=== PATIENT | female | born 1945 | race Caucasian/White ===

== ENCOUNTER → 2016-11-17 06:18 | Emergency (ER) | payer MEDICARE ==
[~2016-11-17 06:18] MED LIST: Ibuprofen TAB* 600 MG PO ONE
--- NOTE | 2016-11-17 08:14 | RAD ---
INDICATION: Left wrist pain. TECHNIQUE: 3 views of the left wrist were obtained. FINDINGS: The bones are normal alignment. No fracture is seen. There is mild osteoarthritic change in the first carpal metacarpal joint. IMPRESSION: MILD OSTEOARTHRITIC CHANGE.
[2016-11-17 09:56] VITALS: BP 148/78
--- NOTE | 2016-11-17 17:20 | ED ---
Sumaya Chu Alfonso, scribed for Nyasia Allen MD on 11/17/16 at 0718 . Upper Extremity Pain - HPI Summary HPI Summary: This patient is a 70 year old F presenting to [facility] with a chief complaint of left hand numbness since 2 weeks ago. Patient reports all fingers in the left hand are numb. She states her left index finger has no sensation secondary to an accident more than 50 years ago. She states think of a rubber band and [ the fingers] go snap and they get so numb that they throb. Patient states she thinks the symptoms are carpal tunnel but she has not had this evaluated or diagnosed by a physician. The patient rates the pain 9/10 in severity. The pain is constant and worse at night. Symptoms aggravated by movement. Patient reports FROM in left hand and pale left fingers. Patient denies motor function loss and LUE pain outside of the left hand. She was wearing a hand splint, and tried exercises for carpal tunnel found online. She is not working outside of the home. She reports an appointment with Dr. Cabrera (orthopedics) for 11/23/16 that she made on her own, without a referral. This was the soonest appointment she could get. She denies PMHx of CAD, DM, and thyroid disease. Patient reports taking 40 mg pravastatin and Losartan Potassium / Hydrochlorothiazide 50 mg/ 12.5 mg. She began a course of Amoxicillin two days ago. PSHx includes tubal ligation, cataracts, right meniscus surgery, and left plantar fascia. PMHx includes HTN and HLD. - History of Current Complaint Chief Complaint: EDExtremityUpper Stated Complaint: LEFT HAND PAIN Hx Obtained From: Patient Mechanism Of Injury: Other - no known injury Onset/Duration: Started Weeks Ago - 2, Still Present Timing: Constant Severity Initially: Moderate Severity Currently: Moderate Pain Location: Hand - left Character: Throbbing - and numb Aggravating Factor(s): Movement Alleviating Factor(s): Nothing Associated Signs & Symptoms: Positive: Numbness/Tingling, Other - FROM in left hand and pale left fingers. Patient denies motor function loss and LUE pain outside of the left hand Related History: Dominant Hand Right - Risk Factors Non-Orthopedic Risk Factor: Negative DVT Risk Factors: Negative - Allergies/Home Medications Allergies/Adverse Reactions: Allergies Allergy/AdvReac Type Severity Reaction Status Date / Time Sulfa Antibiotics Allergy KIDNEY Verified 11/17/16 06:50 DAMAGE BEES Allergy Edema Uncoded 11/17/16 06:50 PMH/Surg Hx/FS Hx/Imm Hx Previously Healthy: No Endocrine/Hematology History: Denies: Hx Diabetes, Hx Thyroid Disease Cardiovascular History: Reports: Hx Hypercholesterolemia, Hx Hypertension - ON MEDS Denies: Hx Coronary Artery Disease, Other Cardiovascular Problems/Disorders Respiratory History: Denies: Other Respiratory Problems/Disorders GI History: Denies: Other GI Disorders Musculoskeletal History: 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 1998, LEFT FOOT PLANTAR FASCIITIS. includes tubal ligation, cataracts, meniscus surgery, and plantar fascia Hx Anesthesia Reactions: No Infectious Disease History: No Infectious Disease History: Denies: Traveled Outside the [place] in Last 30 Days - Family History Known Family History: Positive: Cardiac Disease, Other - Negative cancer - Social History Alcohol Use: None Substance Use Type: Reports: None Smoking Status (MU): Never Smoked Tobacco Have You Smoked in the Last Year: No Review of Systems Negative: Fever Cardiovascular: Negative Respiratory: Negative Gastrointestinal: Negative Positive: Other - left hand numbness, FROM in left hand; negative motor function loss and LUE pain outside of the left hand Positive: Other - pale left fingers Neurological: Negative Psychological: Normal All Other Systems Reviewed And Are Negative: Yes Physical Exam Triage Information Reviewed: Yes Vital Signs On Initial Exam: Initial Vitals Temp Pulse Resp BP Pulse Ox 97.1 F 88 20 146/71 97 11/17/16 06:21 11/17/16 06:21 11/17/16 06:21 11/17/16 06:21 11/17/16 06:21 Vital Signs Reviewed: Yes Appearance: Positive: Well-Appearing, Well-Nourished, Pain Distress Skin: Positive: Warm, Skin Color Reflects Adequate Perfusion Head/Face: Positive: Normal Head/Face Inspection Eyes: Positive: Conjunctiva Clear ENT: Positive: Normal ENT inspection Neck: Positive: Supple, Nontender, No Lymphadenopathy Respiratory/Lung Sounds: Positive: Clear to Auscultation, Breath Sounds Present , Other - No respiratory distress Cardiovascular: Positive: RRR, Pulses are Symmetrical in both Upper and Lower Extremities, Other - brisk capillary refill. Radial and ulnar pulses 2+ and strong in left hand.. Negative: Murmur Abdomen Description: Positive: Nontender, Soft Bowel Sounds: Positive: Present Musculoskeletal: Positive: Other - Tinel's positive. Phalens positive. Left hand laundry room attendant strength 4/5 compared to right hand 5/5. Motor function and sensation intact. Neurological: Positive: Sensory/Motor Intact, Alert, Oriented to Person Place, Time, CN Intact II-III, Facial Symmetry, Speech Normal Psychiatric: Positive: Normal Diagnostics - Vital Signs Vital Signs Temp Pulse Resp BP Pulse Ox 11/17/16 06:21 97.1 F 88 20 146/71 97 - Laboratory Lab Statement: Any lab studies that have been ordered have been reviewed, and results considered in the medical decision making process. - Radiology Left Wrist X-Ray Radiology Interpretation Completed By: Radiologist - MILD OSTEOARTHRITIC CHANGE. ED physician has reviewed this radiology report and agrees. Re-Evaluation - Re-Evaluation First Eval Re-Evaluation Time: 09:30 Change: Improved Comment: She reports the pain is much improved after ibuprofen. Course/Dx - Course Assessment/Plan: This patient is a 70 year old F presenting to [facility] with a chief complaint of left hand numbness since 2 weeks ago. Patient reports all fingers in the left hand are numb. She states her left index finger has no sensation secondary to an accident more than 50 years ago. She states think of a rubber band and [the fingers] go snap and they get so numb that they throb. Patient states she thinks the symptoms are carpal tunnel. The patient rates the pain 9/10 in severity. The pain is constant and worse at night. Symptoms aggravated by movement. Patient reports FROM in left hand and pale left fingers. Patient denies motor function loss and LUE pain outside of the left hand. She was wearing a hand splint, and tried exercises for carpal tunnel found online. She is not working outside of the home. She reports an appointment with Dr. Cabrera (orthopedics) for 11/23/16. She denies PMHx of CAD, DM, and thyroid disease. Patient reports taking 40 mg pravastatin and Losartan Potassium / Hydrochlorothiazide 50 mg/12.5 mg. She began a course of Amoxicillin two days ago. PSHx includes tubal ligation, cataracts, right meniscus surgery, and left plantar fascia. PMHx includes HTN and HLD.In the ED pt had ibuprofen 600mg po and a left wrist xray. Left wrist X-Ray reveals MILD OSTEOARTHRITIC CHANGE. ED physician has reviewed this radiology report and agrees. Pain improved with ibuprofen. Patient will be discharged with prescription for ibuprofen, cock up splint and definite follow up with Dr. Cabrera (orthopedics) and PCP. The patient is agreeable with this plan. - Diagnoses Differential Diagnosis/HQI/PQRI: Positive: Arthritis, Strain, Sprain, Other - carpal tunnel Provider Diagnoses: Carpal tunnel syndrome of left wrist, Paresthesia and pain of left extremity Discharge - Discharge Plan Condition: Stable Disposition: HOME Prescriptions: Ibuprofen TAB* [Motrin TAB* 600 MG] 600 mg PO Q8H PRN #20 tab PRN Reason: Pain Patient Education Materials: Osteoarthritis (ED), Paresthesia (ED) Referrals: Faiza Cabrera MD [Medical Doctor] - 4 Days (Monday11/21/16.) Maday Ricks MD [Primary Care Provider] - 1 Day The documentation as recorded by the Sumaya rodgers Alfonso accurately reflects the service I personally performed and the decisions made by , Nyasia Allen MD.
== END | disposition home or self-care (01) ==
LOC: ED 06:18
DX: G56.02 Carpal tunnel syndrome, left upper limb (principal); R20.8 Other disturbances of skin sensation
CPT/HCPCS: 99282; A9270-GY

== ENCOUNTER 2016-12-13 08:04 | Day surgery (SDC) | payer MEDICARE ==
--- NOTE | 2016-12-12 10:03 | HP ---
PREOPERATIVE HISTORY AND PHYSICAL: DATE OF SURGERY/ADMISSION: 12/13/16 DATE OF OFFICE VISIT/ENCOUNTER: 12/08/16 ATTENDING SURGEON: Faiza Cabrera MD * (DICTATED BY RACHNA BROWNE) PROCEDURE: Left carpal tunnel release. CHIEF COMPLAINT: Left hand numbness and tingling. HISTORY OF PRESENT ILLNESS: This is a 70-year-old female who reports numbness and tingling in her left hand for several months. The symptoms have become more intensive over the past couple of weeks. She said that recently she has been doing a lot of lifting, pushing, and pulling and trying to help clean out her mother's house. She has symptoms at night, which are quite severe and awaken her and also symptoms during the day. Symptoms are so significant it causes her to drop things. She recently had an EMG nerve conduction study that showed moderate carpal tunnel syndrome on the left. She has failed conservative treatment including wrist brace and [id number] medications. She is interested in pursuing surgical intervention at this time for this problem in the form of a left wrist carpal tunnel release. CURRENT MEDICATIONS: 1. Acetaminophen ER 650 mg one tab q.4 hours p.r.n. 2. Ibuprofen 600 mg one tab t.i.d. p.r.n. pain. 3. Losartan potassium hydrochlorothiazide one tab daily. 4. Multivitamin daily. 5. Pravastatin sodium 40 mg daily. ALLERGIES: SULFASALAZINE causes kidney issues. FAMILY MEDICAL HISTORY: Heart disease and cancer. SOCIAL HISTORY: The patient is retired, but she is very active with quilting and water aerobics. She denies tobacco use, recreational drug use, and alcohol use. REVIEW OF SYSTEMS: General: Negative for fevers, chills, or night sweats. No known anesthesia problems. HEENT: Negative for headache, lightheadedness or syncopal episodes. Integumentary: Negative for abrasions, lesions or open wounds. Cardiothoracic: Positive for hypertension. Negative for chest pain, palpitations or edema. Pulmonary: Negative for shortness of breath with exertion, chronic cough or COPD. GI: Negative for nausea, vomiting, diarrhea, constipation or GERD. : Negative for nocturia, urinary frequency, urgency, history of UTIs or kidney problems. Musculoskeletal: Positive for current complaint. Negative for chronic or intermittent back pain or history of fractures. Neurological: Negative for history of seizure, stroke, or epilepsy. Endocrine: Negative for diabetes or thyroid issues. Hematologic: Negative for easy bruising, anemia, excessive bleeding, or history of DVT. Infectious Disease: Negative for history of MRSA, hepatitis C or HIV. PHYSICAL EXAMINATION GENERAL: Well-developed, well-nourished 70-year-old female in no acute distress. VITAL SIGNS: Height 5 feet 8 inches, weight 220 pounds, blood pressure 136/78, and pulse rate 89. HEENT: Normocephalic, atraumatic. Pupils are equal, round, and reactive to light and accommodation. Extraocular movements are intact. Throat is clear. NECK: Supple. No palpable lymph nodes. PULMONARY: Lungs are clear to auscultation bilaterally. No wheezes, rales or rhonchi. CARDIOTHORACIC: Regular rate and rhythm. S1, S2. No murmurs, rubs or gallops. No edema. ABDOMEN: Positive bowel sounds. Soft, nontender. MUSCULOSKELETAL: On exam of her left upper extremity, she has mild thenar atrophy noted and weakness with some abduction on the left when compared to the right. She can make a closed fist and has good range of motion of her wrist. She has full motion at the elbow with no exacerbation of her symptoms. She has a negative Tinel's sign at the elbow, a positive Tinel's sign at the wrist over the median nerve and a positive Phalen test. She reports slight decreased sensation to light touch in her index finger through her pinky finger. She has full sensation in her thumb. NEUROLOGIC: Alert and oriented x3. Cranial nerves II through XII are intact. Sensation is intact to light touch. IMAGING STUDIES: EMG nerve conduction study shows moderate carpal tunnel syndrome on the left. IMPRESSION: Left carpal tunnel syndrome. PLAN: The patient is scheduled to undergo a left wrist carpel tunnel release with Dr. Cabrera on 12/13/16. She will return to the office in 10 to 14 days postop for followup and suture removal. A prescription for Ultracet was e- scribed to the patient's pharmacy for postoperative pain management. RACHNA BROWNE [id number]/[facility] #: [id number] MARTIN
[~2016-12-13 08:04] MED LIST changes: +Buffered Lidocaine 0.9% SYRIN* 5 ML/SYR SYRINGE INTRADERM ONE; +Dexamethasone IV* 4 MG/ML 1 ML (4 MG) IV SLOW PU ONE; +Famotidine IV* 10 MG/ML 2 ML (20 mg) IV ONE; -Ibuprofen TAB* 600 MG PO ONE; +Lidocaine 1% INJ* 10 MG/ML 30 ML SDV ONE
[2016-12-13] MEDS ORDERED: Famotidine IV* 10 MG/ML 2 ML (20 mg) ONE (08:22)
[2016-12-13] MEDS ORDERED: Dexamethasone IV* 4 MG/ML 1 ML (4 MG) ONE (08:22)
[2016-12-13] MEDS ORDERED: Midazolam* 1 MG/ML 2 ML VIAL (2 MG) ONE (08:55)
[2016-12-13] MEDS ORDERED: fentaNYL* 50 MCG/ML 2 ML VIAL (100 MCG VIAL) ONE (08:55)
[2016-12-13] MEDS ORDERED: Ondansetron INJ* 2 MG/ML VIAL IV PRN (09:03)
[2016-12-13] MEDS ORDERED: HYDROcodone/ACETAMIN 5-325 MG* 1 TAB PO PRN (09:03)
[2016-12-13] MEDS ORDERED: fentaNYL* 50 MCG/ML 2 ML VIAL (100 MCG VIAL) IV PRN (09:03)
[2016-12-13] MEDS ORDERED: Ketorolac INJ* 30 MG/ML 1 ML VIAL IV PRN (09:03)
[2016-12-13] MEDS ORDERED: oxyCODONE TAB* 5 MG TAB PO PRN (09:03)
[2016-12-13] MEDS ORDERED: Acetaminophen TAB* 325 MG PO PRN (09:03)
[2016-12-13] MEDS ORDERED: Propofol* 10 MG/ML 20 ML BTL IV PUSH ONE (09:12)
[2016-12-13] MEDS ORDERED: Lidocaine 2% PF * 5 ML VIAL ONE (09:12)
[2016-12-13 09:43] VITALS: BP 118/61
--- NOTE | 2016-12-13 23:56 | OP ---
DATE OF OPERATION: 12/13/16 - [facility] DATE OF : 43 SURGEON: Faiza Cabrera MD. TERMINAL MAKE UP OPERATOR: RACHNA Sellers ANESTHESIOLOGIST: Jevon Baptiste MD ANESTHESIA: Local MAC. PRE-OP DIAGNOSIS: Left carpal tunnel syndrome. POST-OP DIAGNOSIS: Left carpal tunnel syndrome. OPERATIVE PROCEDURE: Left carpal tunnel release. ESTIMATED BLOOD LOSS: Zero. TOURNIQUET TIME: 5 minutes. INDICATIONS FOR PROCEDURE: Savi is a 70-year-old female with numbness and tingling in the median nerve distribution of her left hand. She presents for left carpal tunnel release. DESCRIPTION OF PROCEDURE: The patient was brought to the operating room, was given a sedation anesthetic and a local infiltration of 10 cc of 1% plain lidocaine in the palm of her left hand. Skin of her left hand and forearm was prepped and draped in the usual sterile fashion. The hand and forearm were exsanguinated and tourniquet elevated to 250 mmHg. A longitudinal incision was made in the palm in line with the ring finger, dissected through the subcutaneous tissue down to the transverse carpal ligament. The ligament was divided sharply with a knife and then more proximally with the scissors. The nerve was dissected free from the surrounding tissue and there was an area of moderate compression in the mid portion of the ligament. The wound was irrigated and skin edges reapproximated with 4-0 nylon suture. The wound was dressed with Xeroform, 4x4, Webril, and an Feliz wrap. The patient tolerated the procedure well and was brought to the recovery room in good condition. [id number]/[facility] #: [id number] [facility]
== END 2016-12-13 10:06 | disposition home or self-care (01) ==
LOC: OREAST 08:04
PROVIDERS: ATTEND Orthopaedic Surgery
DX: G56.02 Carpal tunnel syndrome, left upper limb (principal); I10 Essential (primary) hypertension; E78.5 Hyperlipidemia, unspecified
CPT/HCPCS: J1100; J2001; J2250; J2704; J3010

== ENCOUNTER 2017-02-07 06:28 | Day surgery (SDC) | payer MEDICARE ==
--- NOTE | 2017-01-27 07:26 | HP ---
PREOPERATIVE HISTORY AND PHYSICAL: DATE OF SURGERY/ADMISSION: 02/07/17 ATTENDING SURGEON: Faiza Cabrera MD. * (DICTATED BY RACHNA BROWNE) PROCEDURE: Right carpal tunnel release. CHIEF COMPLAINT: Right hand numbness and tingling. HISTORY OF PRESENT ILLNESS: This is a 71-year-old female who reports numbness and tingling in her right hand for several months. The symptoms have progressively worsened over time. She has symptoms at night which awaken her and also has symptoms during the day with her activities of daily life. Sometimes, she finds she is dropping things because she does not have the strength in her hand. Clinically, she has been diagnosed with carpal tunnel syndrome. She has failed conservative treatment including wrist brace and over- the-counter medications. She recently underwent a left carpal tunnel release and has had success with that. She is interested now in pursuing surgical intervention for her right carpal tunnel and is scheduled for a right carpal tunnel release with Dr. Cabrera. CURRENT MEDICATIONS: 1. Acetaminophen ER 650 mg 1 tab q. 4 hours p.r.n. 2. Ibuprofen 600 mg 1 tab t.i.d. p.r.n. pain. 3. Amoxicillin 500 mg 4 tabs 1 hour before dental work. 4. Losartan potassium/hydrochlorothiazide 1 tab daily. 5. Multivitamin daily. 6. Pravastatin sodium 40 mg daily. ALLERGIES: SULFASALAZINE causes kidney issues. FAMILY HISTORY: Heart disease and cancer. SOCIAL HISTORY: The patient is retired, but is very active with and water aerobics. She denies tobacco use, recreational drug use and alcohol use. REVIEW OF SYSTEMS: General: Negative for fevers, chills or night sweats. No known anesthesia problems. HEENT: Negative for headaches, lightheadedness or syncopal episodes. Integumentary: Negative for abrasions, lesions, or open wounds. Cardiothoracic: Positive for hypertension. Negative for chest pain, palpitations or edema. Pulmonary: Negative for shortness of breath with exertion, chronic cough, COPD. GI: Negative for nausea, vomiting, diarrhea, constipation, or GERD. : Negative for nocturia, urinary frequency, urgency, history of UTIs or kidney problems. Musculoskeletal: Positive for current complaint. Negative for chronic or intermittent back pain or history of fractures. Neurologic: Positive for dysesthesias in her right hand. Negative for history of seizure or stroke. Endocrine: Negative for diabetes or thyroid issues. Hematologic: Negative for easy bruising, anemia, excessive bleeding or history of DVT. Infectious Disease: Negative for history of MRSA, hepatitis C or HIV. PHYSICAL EXAMINATION GENERAL: Well-developed, well-nourished 71-year-old female in no acute distress. VITAL SIGNS: Height 5 feet 8 inches, weight 220 pounds. Pulse rate 96, blood pressure 140/82. HEENT: Normocephalic, atraumatic. Pupils are equal, round and reactive to light and accommodation. Extraocular movements are intact. Throat is clear. NECK: Supple. No palpable lymph nodes. PULMONARY: Lungs are clear to auscultation bilaterally. No wheezes, rales or rhonchi. CARDIOTHORACIC: Regular rate and rhythm. S1, S2. No murmurs, rubs or gallops. No edema. ABDOMEN: Positive bowel sounds, soft, nontender. MUSCULOSKELETAL: On exam of the right upper extremity, she has mild thenar atrophy noted and weakness with thumb abduction. She had good range of motion in her fingers and her wrists. Positive Tinel sign at the wrist over the median nerve and positive Phalen test. She has full sensation to light touch throughout the hand. IMPRESSION: Right carpal tunnel syndrome. PLAN: The patient is scheduled to undergo a right carpal tunnel release with Dr. Cabrera on 02/07/17. She will return to the office 10 to 14 days postop for followup and suture removal. She has some Ultracet left over from her left carpal tunnel release that she will plan to use for postoperative pain after her right carpal tunnel release. RACHNA BROWNE [id number]/[facility] #: [id number] MARTIN
[~2017-02-07 06:28] MED LIST changes: -Dexamethasone IV* 4 MG/ML 1 ML (4 MG) IV SLOW PU ONE; -Famotidine IV* 10 MG/ML 2 ML (20 mg) IV ONE; -Lidocaine 1% INJ* 10 MG/ML 30 ML SDV ONE
[2017-02-07] MEDS ORDERED: Lidocaine 1% INJ* 10 MG/ML 30 ML SDV ONE (07:08)
[2017-02-07] MEDS ORDERED: fentaNYL* 50 MCG/ML 2 ML VIAL (100 MCG VIAL) ONE (07:32)
[2017-02-07] MEDS ORDERED: Midazolam* 1 MG/ML 2 ML VIAL (2 MG) ONE (07:32)
[2017-02-07] MEDS ORDERED: Propofol* 10 MG/ML 20 ML BTL IV PUSH ONE (07:53)
[2017-02-07 09:20] VITALS: BP 130/58
--- NOTE | 2017-02-08 | OP ---
DATE OF OPERATION: 02/07/17 [facility] DATE OF : 43 SURGEON: Faiza Cabrera MD CELLULOSE INSULATION HELPER: RACHNA Sellers ANESTHESIOLOGIST: Elvis Reid DO ANESTHESIA: Local MAC. PRE-OP DIAGNOSIS: Right carpal tunnel syndrome. POST-OP DIAGNOSIS: Right carpal tunnel syndrome. OPERATIVE PROCEDURE: Right carpal tunnel release. ESTIMATED BLOOD LOSS: Zero. TOURNIQUET TIME: About 5 minutes. INDICATIONS FOR PROCEDURE: Savi is a 71-year-old female with numbness and tingling in the median nerve distribution of her right hand. She presents for right carpal tunnel release. DESCRIPTION OF PROCEDURE: The patient was brought to the operating room, was given a sedation anesthetic and a local infiltration with 10 cc of 1% plain lidocaine in the palm of her right hand. The skin of the right hand and forearm was prepped and draped in the usual sterile fashion. The hand and forearm were exsanguinated and the tourniquet elevated to 250 mmHg. A longitudinal incision was made in the palm in line with the ring finger. We dissected through the subcutaneous tissue down to the transverse carpal ligament. The ligament was divided sharply with a knife and then more proximally with the scissors. The nerve was dissected free from the surrounding tissue and there was an area of moderate compression at the mid portion of the ligament. The wound was irrigated and the skin edges reapproximated with 4-0 nylon suture. The wound was dressed with Xeroform and 4x4, Webril, and Feliz wrap. The patient tolerated the procedure well and was brought to the recovery room in good condition. [id number]/[facility] #: [id number] MTDD
== END 2017-02-07 08:32 | disposition home or self-care (01) ==
LOC: OREAST 06:28
PROVIDERS: ATTEND Orthopaedic Surgery
DX: G56.01 Carpal tunnel syndrome, right upper limb (principal); Z88.2 Allergy status to sulfonamides; I10 Essential (primary) hypertension; E78.00 Pure hypercholesterolemia, unspecified
CPT/HCPCS: J2250; J2704; J3010

== ENCOUNTER 2017-07-11 06:43 | Observation (INO) | payer MEDICARE ==
--- NOTE | 2017-07-04 17:39 | HP ---
HISTORY AND PHYSICAL: DATE OF SURGERY: 07/11/17 DATE OF OFFICE VISIT: 07/03/17 SURGEON: Radha Jacob MD* (dictated by RACHNA Denson). PROCEDURE: Right total knee arthroplasty. CHIEF COMPLAINT: Right knee pain. HISTORY OF PRESENT ILLNESS: Ms. Hewitt is a 71-year-old female with complaints of right knee pain secondary to severe end-stage osteoarthritis. She has failed conservative management and elected to proceed with a right total knee arthroplasty, which is scheduled for 07/11/[address] Jacob. PAST MEDICAL HISTORY: 1. Hypertension. 2. High cholesterol. PAST SURGICAL HISTORY: 1. Tubal ligation. 2. Plantar fasciitis. 3. Right knee arthroscopy. 4. Bilateral carpal tunnel release. CURRENT MEDICATIONS: 1. Vitamin C. 2. Ibuprofen. 3. Multivitamin. 4. Calcium. 5. Magnesium. 6. Zinc. 7. Losartan. 8. Potassium/hydrochlorothiazide 50-12.5 mg daily. 9. Pravastatin sodium 40 mg. ALLERGIES: SULFA. FAMILY HISTORY: Heart disease, cancer and tuberculosis. SOCIAL HISTORY: A 71-year-old female. She is retired. She does not smoke or use drugs or alcohol. REVIEW OF SYSTEMS: A complete 14-point review systems was reviewed with the patient. It was all negative or noncontributory. She denies history of DVT, PE, hepatitis C, or HIV. PHYSICAL EXAMINATION GENERAL: She is well developed, well nourished, in no acute distress. VITAL SIGNS: She stands 5 feet 7 inches tall, weighs 214 pounds. Her blood pressure is 140/80, heart rate 105. HEENT: Normocephalic, atraumatic. NECK: Supple. No palpable lymph nodes. PULMONARY: The lungs are clear to auscultation bilaterally. CARDIO: Regular rate and rhythm. Strong S1, S2. ABDOMEN: Soft, nontender, nondistended. NEUROLOGICAL: She is alert, and oriented x3. Cranial nerves II through XII are intact. MUSCULOSKELETAL: Right lower extremity, the skin is intact. There is no open wounds or abrasions. There is a moderate joint effusion. She has tenderness over the medial and lateral joint line. Range of motion is 10 to 120 degrees with patellofemoral crepitus. She has 2+ dorsalis pedis pulses. Intact sensation. Her lower extremity muscle group strengths are intact at 5/5. ASSESSMENT AND PLAN: Ms. Hewitt is a 71-year-old female with continued complaints of right knee pain secondary to end-stage osteoarthritis. She has failed conservative management and has elected to proceed with a right total knee arthroplasty, which is scheduled for 07/11/[address] Jacob has discussed the risks and benefits of the surgery at today's visit and all of her questions were answered. She will follow up with Dr. Jacob in 2 weeks after the surgery. RACHNA DENSON [id number]/[facility] #: [id number] MARTIN
[2017-07-11] MEDS ORDERED: Buffered Lidocaine 0.9% SYRIN* 5 ML/SYR SYRINGE ONE (07:04)
[2017-07-11] MEDS ORDERED: ceFAZolin 2 GM PREMIX (*) 2 GM/50 ML BAG IVPB ONE (07:04)
[2017-07-11] MEDS ORDERED: Midazolam* 1 MG/ML 5 ML VIAL (5 MG) ONE ×2 (07:27→08:27)
[2017-07-11] MEDS ORDERED: Bupivacaine 0.5% PF 10 ML VIAL INJ ONE (07:47)
[2017-07-11] MEDS ORDERED: Bupivacaine 0.25% SDV* 30 ML ONE (07:49)
[2017-07-11] MEDS ORDERED: Bupivacaine 0.5% SDV PF* 10-30ML VIAL ONE (07:49)
[2017-07-11] MEDS ORDERED: fentaNYL* 50 MCG/ML 2 ML VIAL (100 MCG VIAL) ONE (08:08)
[2017-07-11] MEDS ORDERED: Bisacodyl SUPP* 10 MG SUPP PR PRN (09:27)
[2017-07-11] MEDS ORDERED: Ondansetron INJ* 2 MG/ML VIAL IV PRN ×2 (09:27→09:46)
[2017-07-11] MEDS ORDERED: Acetaminophen TAB* 325 MG PO PRN (09:27)
[2017-07-11] MEDS ORDERED: Magnesium Hydroxide LIQ* 30 ML UDC PO PRN (09:27)
[2017-07-11] MEDS ORDERED: oxyCODONE TAB* 5 MG TAB PO PRN (09:27)
[2017-07-11] MEDS ORDERED: Morphine VIAL* 4 MG/ML VIAL (1 ml vial) IV PRN (09:27)
[2017-07-11] MEDS ORDERED: Cyclobenzaprine TAB* 10 MG PO PRN (09:27)
[2017-07-11] MEDS ORDERED: diPHENhydraMINE IV* 50 MG/ML 1 ml VIAL (BENADRYL) IV PRN (09:27)
[2017-07-11] MEDS ORDERED: HYDROmorphone INJ* 1 MG/ML CARPUJECT SYRINGE IV PRN (09:46)
[2017-07-11] MEDS ORDERED: Naloxone* 0.4 MG/ML 1 ML VIAL IV PRN (09:46)
[2017-07-11] MEDS ORDERED: fentaNYL* 50 MCG/ML 2 ML VIAL (100 MCG VIAL) IV PRN (09:46)
[2017-07-11] MEDS ORDERED: Ondansetron INJ* 2 MG/ML VIAL ONE (10:41)
[2017-07-11] MEDS ORDERED: Ketorolac INJ* 30 MG/ML 1 ML VIAL ONE (10:41)
--- NOTE | 2017-07-11 11:38 | RAD ---
Indication: Immediate postop exam following RIGHT total knee replacement. Comparison: June 09, 2017 radiographs Technique: Portable AP and cross table lateral views RIGHT knee. Report: Status post total knee replacement. Post-op fluid and gas is seen in the joint space and anterior subcutaneous tissues. Alignment is anatomic. No periprosthetic fracture evident. IMPRESSION: Unremarkable immediate postoperative appearance following RIGHT knee replacement.
[2017-07-11] MEDS ORDERED: Dexamethasone IV* 4 MG/ML 1 ML (4 MG) ONE (13:11)
[2017-07-11] MEDS: ceFAZolin 1 GM in Dextrose (*) 1 GM/50 ML BAG IVPB SCH ×2 (16:00→23:44)
[2017-07-11] MEDS: oxyCODONE/Acetamin 5/325 MG* TAB PO PRN ×2 (16:31→21:04)
[2017-07-11] MEDS ORDERED: Warfarin TAB(*) 6 MG PO ONE (17:00)
[2017-07-11] MEDS: Magnesium Hydroxide LIQ* 30 ML UDC PO SCH (21:08)
[2017-07-11] MEDS: Nystatin TOP POWDER* 15 GM BTL TOPICAL SCH (21:08)
[2017-07-11] MEDS: Docusate CAP* 100 MG PO SCH (21:08)
--- NOTE | 2017-07-11 21:44 | CONS ---
[facility] CONSULTATION REPORT: DATE OF CONSULT: 07/11/17 ATTENDING PHYSICIAN: Dr. Jacob. CONSULTING PHYSICIAN: José Morris MD (dictated by Ruby Timmons NP) REASON FOR CONSULT: Co-management of hypertension and hyperlipidemia. HISTORY OF PRESENT ILLNESS: Ms. Hewitt is a 71-year-old female with a past medical history of right knee osteoarthritis who presented today for a planned right total knee arthroplasty with Dr. Jacob. Please see dictated H and P from Salma Rizzo for complete details. In brief, the patient had ongoing pain and failed conservative measures, therefore opted for a right total knee arthroplasty. In the postoperative period, the patient is feeling well and has no complaints. The patient denies any fever or chills. Denies any nausea or vomiting. Denies any chest pain or shortness of breath. PAST MEDICAL HISTORY: 1. Hypertension. 2. Hyperlipidemia. 3. Osteoarthritis. PAST SURGICAL HISTORY: 1. Tubal ligation. 2. Plantar fasciitis. 3. Right knee arthroscopy. 4. Bilateral carpal tunnel. 5. Tonsillectomy. OUTPATIENT MEDICATIONS: 1. Vitamin C. 2. Ibuprofen. 3. Multivitamin. 4. Calcium. 5. Magnesium. 6. Zinc. 7. Losartan/hydrochlorothiazide 50/12.5. 8. Pravastatin 40 mg p.o. daily. ALLERGIES: LISINOPRIL and SULFA. FAMILY HISTORY: Father with heart disease. Denies any diabetes in the family and father also had bone cancer. SOCIAL HISTORY: Denies any tobacco, alcohol or drug use. She reports that she is retired. She is . Surrogate decision maker in the event she is unable to make her own medical decisions is her , Travis Hewitt, his phone number is [phone]. REVIEW OF SYSTEMS: General: No fever, chills or unintended weight loss. Cardiac: No chest pain or edema. Respiratory: No cough, hemoptysis or shortness of breath. GI: No nausea, vomiting or diarrhea. Denies any abdominal pain. : Denies any hematuria or dysuria. Neuro: No focal weakness or sensory loss. Eyes: No visual complaints. ENT: No dysphagia. Musculoskeletal: Does report joint pain mainly to the left hip. Denies any muscle aches. Skin: Denies any rashes or lesions. Psych: Denies any depression or anxiety. PHYSICAL EXAM: Vital Signs: Temperature was 98.2, heart rate was 82, respirations 16, O2 saturation 96% on room air, blood pressure 135/66. General : Ms. Hewitt is sitting up on the stretcher in the recovery room. She is in no acute distress. Neuro: She is alert and oriented x3. She is able to move all extremities equally. Her speech is clear. Extraocular eye movements are intact. Heart: S1, S2. There are no murmurs, rubs or gallops. It is regular rhythm and rate. Lungs are clear to auscultation bilaterally, no accessory muscle use noted. There is good aeration. Abdomen is soft and nontender. Bowel sounds are positive x4 extremities. No cyanosis or edema. Skin is intact. She does have a dressing to her right knee. LABORATORY DATA: Preoperatively on 07/03/17: WBC's 5.7, RBC's 4.64, hemoglobin 13.8, hematocrit was 41, platelet count was 214,000. INR was 0.94. Sodium was 140, potassium 3.9, chloride 104, carbon dioxide was 28, anion gap was 8, BUN was 25, creatinine 0.71, calcium was 9.8, hemoglobin A1c was 6.4. IMPRESSION AND PLAN: Ms. Hewitt is a 71-year-old female with past medical history significant for hypertension, hyperlipidemia, and osteoarthritis who presented to the hospital today for an elective right total knee arthroplasty with Dr. Jacob. In the immediate postoperative period, she has no complaints. Our recommendations are as follows: 1. Status post right total knee arthroplasty. Management per Orthopedics, PT/ OT as per Ortho. Pain management per Orthopedics. 2. Hypertension. I will continue her losartan, but we will hold her hydrochlorothiazide at this time. 3. Hyperlipidemia. We will continue her pravastatin at 40 mg p.o. daily. 4. FEN. I will place her on a heart healthy caffeine okay diet. 5. Code status. She is a full code. 6. DVT prophylaxis per Orthopedics. 7. Disposition. She is inpatient. TIME SPENT: Time spent was approximately 45 minutes on this consultation, more than half of that time was spent with the patient at the bedside reviewing events leading and thus far to the hospitalization, performing physical exam and reviewing my plan of care. I have discussed this plan of care with my attending, Dr. José Morris, and he is in agreement with my plan. RUBY TIMMONS, BODY WORK AUTO TRIMMER [id number]/[facility] #: [id number] MARTIN
[2017-07-12] MEDS: oxyCODONE/Acetamin 5/325 MG* TAB PO PRN ×4 (03:28→17:55)
[2017-07-12 05:53] LABS: Hematocrit 32 % (35-47); Hemoglobin 10.8 g/dl (12.0-16.0); Mean Platelet Volume 7.7 um3 (7.4-10.4); Platelet Count 173 10^3/ul (150-450)
[2017-07-12 06:00] LABS: INR 1.1 (0.77-1.02)
[2017-07-12 06:12] LABS: EGFR Non-African American 80.9 (>60)
[2017-07-12] MEDS ORDERED: Losartan TAB* 25 MG PO SCH (09:00)
[2017-07-12] MEDS ORDERED: Vitamin THERAPEUTIC TAB PO SCH (09:00)
[2017-07-12] MEDS: Docusate CAP* 100 MG PO SCH (09:01)
[2017-07-12] MEDS: Magnesium Hydroxide LIQ* 30 ML UDC PO SCH (09:04)
[2017-07-12] MEDS: ceFAZolin 1 GM in Dextrose (*) 1 GM/50 ML BAG IVPB SCH (09:08)
[2017-07-12] MEDS: Nystatin TOP POWDER* 15 GM BTL TOPICAL SCH (09:23)
[2017-07-12] MEDS ORDERED: Ondansetron ODT TAB* 4 MG SL PRN (09:47)
[2017-07-12] MEDS ORDERED: Ondansetron ODT TAB* 4 MG ONE (09:57)
--- NOTE | 2017-07-12 11:15 | PN ---
Progress Note - Progress Note Date of Service: 07/12/17 SOAP: Subjective: [Pt was seen this am sitting up in bed. Pt states that she is feeling well. Pain is mild to moderate. She had taken 2 percocet this am before PT and has started to feel nausea which she attributes to the percocet. She denies any vomiting. Denies any SOB, chest pain. Denies any numbness or tingling. Pt has expressed a desire to go home today if possible. ] Objective: [General: Pt is alert and oriented. NAD. MSK, RLE: Dressing is c/d/i. Calf is soft and non tender. + df/pf. Sensation intact to light tough distally. 2+ DP pulse present. ] Vital Signs Temp 97.5 F 07/12/17 07:40 Pulse 70 07/12/17 07:40 Resp 18 07/12/17 09:58 BP 133/55 07/12/17 07:40 Pulse Ox 97 07/12/17 08:00 Intake & Output 07/11/17 07/12/17 07/12/17 18:59 06:59 18:59 Intake Total 2675 1801 1160 Output Total 450 975 Balance 2225 826 1160 Weight 213 lb 12.8 oz Intake: IV Fluids 2350 1141 1040 ABX - CEFAZOLIN 160 60 LR 2300 981 980 Oral 325 660 120 Output: Murcia 300 975 Residual 150 Murcia 16 Fr 150 Other: # Bowel Movements 0 Assessment: [POD 1 RTKA ] Plan: [Continue with current pain medications Zofran sublingual for nausea Continue with PT/OT Spoke with PT today, states that pt is doing well with ambulation. We will assess the pt this afternoon after second round of PT. Possible discharge today should the pt do well at PT and feel well. ]
[2017-07-12] MEDS ORDERED: Enoxaparin(*) 30 MG/0.3 ML SYR SUBCUT SCH (12:00)
--- NOTE | 2017-07-12 12:42 | OP ---
DATE OF OPERATION: 07/11/17 - ROOM #[id number] DATE OF : 43 ATTENDING SURGEON: Radha Jacob MD. ACID CUTTER: RACHNA Thomas. Ms. Hinds did help throughout the procedure with preparation of the leg, wound retraction, manipulation of the knee, and wound closure. ANESTHESIOLOGIST: Dr. Cleaning. ANESTHESIA: Spinal. PRE-OP DIAGNOSIS: Severe end-stage degenerative osteoarthritis of the right knee joint. POST-OP DIAGNOSIS: Severe end-stage degenerative osteoarthritis of the right knee joint. OPERATIVE PROCEDURE: Right total knee arthroplasty. TOURNIQUET TIME: 51 minutes. COMPLICATIONS: None. ESTIMATED BLOOD LOSS: 300 cc. SPECIMENS: Bone and cartilage from the right knee joint sent to Pathology. HARDWARE USED: This is cemented Gonzalez [employer]hew total knee arthroplasty hardware. Two packages of Simplex bone cement. For the femur, a size 4 right posterior stabilized Legion narrow femoral component. For the tibia, a size 3 Ros II right tibial base plate. For the insert, a 9 mm Ros II posterior stabilized articular insert size 3-4. For the patella, a 32 mm 3 peg all poly patella, with 7.5 thickness. BRIEF HISTORY/INDICATIONS: Ms. Hewitt is a 71-year-old female who developed severe right knee pain. Radiographs showed [id number] arthritis. She failed conservative treatment and elected to undergo right total knee arthroplasty. Informed consent was obtained from the patient. She understood the risks of surgery included, but were not limited to bleeding, infection, damage to nearby structures, continued pain, need for further surgery, intraoperative fracture, nerve palsy, hardware failure or loosening, knee stiffness, loss of motion, stroke, heart attack, blood clot, and . She wished to proceed. INTRAOPERATIVE FINDINGS: Intraoperatively, the patient was noted to have tricompartmental full thickness loss of cartilage. This was severe in the medial and patellofemoral compartments. The patient was noted to have flexion contracture of 20 degrees to start the case with, flexion contracture of the hamstring tendons noted throughout the case. DESCRIPTION OF PROCEDURE: Ms. Hewitt was identified in the preanesthesia unit. Her right lower extremity was marked as the correct operative site. Informed consent was signed and placed in the chart. The patient was taken to the operating room and placed under spinal anesthesia. A Murcia catheter was placed. Tourniquet was placed on the right thigh. The right lower extremity was prepped and draped in the usual sterile fashion. Preop time-out was made to correctly identify the patient, side and site. Appropriate perioperative antibiotics were given within 1 hour of incision. The tourniquet was inflated and the total tourniquet time for this procedure was 51 minutes. A 12 cm midline incision was made with a 10-blade and carried down to the extensor mechanism. A new 10-blade was used to make a standard medial parapatellar arthrotomy. Electrocautery was used to subperiosteally elevate the soft tissue off the superomedial tibia to the mid sagittal plane. The patella was subluxed laterally. The knee was flexed up. The anterior horn of the lateral meniscus and the ACL was sharply released. A drill was used to enter the distal femur. The intramedullary distal femoral cutting guide was placed and pinned on the distal femur. Oscillating saw was used to make the distal femoral cut. Next, the external rotation guide was pinned on the distal femur. The distal femur was sized to a size 4. Size 4 multi-cutting jig was pinned on the distal femur. Oscillating saw was used to make the appropriate chamfer cuts. Next, the PCL was completely released. The tibia was subluxed anteriorly. Extramedullary tibial cutting guide was pinned on the proximal tibia. Oscillating saw was used to make the proximal tibial cut perpendicular to the mechanical axis of the tibia. The bone was carefully removed. The knee was brought out into full extension. The spacer block had good fit with the knee in full extension. Medial and lateral ligaments were well balanced. Some hamstring tightness and flexion contracture was noted. Flexion and extension gaps were well balanced. The knee was flexed up. A lamina corporate security officer was placed both medially and laterally. Any remaining meniscus was removed using electrocautery. Curved osteotome was used to remove any posterior osteophytes. Tibial tray and drop bradford were placed and once again confirmed a satisfactory tibial cut. A right size 4 narrow femoral trial was impacted on to the distal femur and had excellent fit. The box for the posterior stabilized implant was prepared using a reamer and box-cut osteotome. Size 3 tibial tray trial with a 9-mm insert trial was placed and the knee was taken through a range of motion. The knee had full extension and 125 degrees of flexion. There was satisfactory patellofemoral tracking. The patella was everted. 7 mm of patellar bone and cartilage were carefully removed using an oscillating saw. The patella was sized to a size 32. Three peg holes were drilled through the size 32 guide. A 7.5 thickness trial patella was placed and the knee was taken through a range of motion. There was satisfactory patellofemoral tracking. All trials were carefully removed. The tibia was subluxed anteriorly and sized to a size 3. Proximal tibia was prepared using a size 3 keel punch. All bony cut surfaces were copiously irrigated with sterile saline and dried. Final implants were cemented into place starting with the tibia followed by the femur and last the patella. A 9 mm insert trial was placed and the knee was spread out into full extension. The tourniquet was turned down at 51 minutes. The knee was copiously irrigated with sterile saline. Electrocautery was used to obtain meticulous hemostasis. Once the cement had fully cured, the insert trial was removed. Any excess cement was removed from around the capsule and hardware. Final insert chosen was a 9-mm posterior stabilized articular insert size 3-4. This was locked into position on the tibial tray. Stability of the insert was checked and rechecked and noted to be stable. The extensor mechanism was closed using interrupted #1 Vicryls. The rest of the incision was closed in a layered fashion using 0 and 2-0 Vicryls. The skin was closed using running 3-0 nylon suture. Sterile Xeroform, 4x4s and Webril were used to cover the incision. Feliz wrap and cold pack were placed over this. The patient's anesthesia was reversed without difficulty. She was taken to the PACU in stable condition. Intended weightbearing will be weightbearing as tolerated. Intended DVT prophylaxis will be Coumadin with Lovenox bridge. [id number]/[facility] #: [id number] MARTIN
[2017-07-12 16:16] VITALS: BP 121/48
[2017-07-12] MEDS ORDERED: Warfarin TAB(*) 4 MG PO ONE (17:00)
[2017-07-12] MEDS ORDERED: Atorvastatin* 10 MG TAB PO SCH (18:00)
--- NOTE | 2017-07-13 11:59 | DS ---
DISCHARGE SUMMARY: DATE OF ADMISSION: 07/11/17 DATE OF DISCHARGE: 07/12/17 PROVIDER: Dr. Radah Jacob.* (DICTATED BY RACHNA DUMONT) TRAFFIC REPORTER: RACHNA Thomas PREOPERATIVE DIAGNOSIS: Severe end-stage degenerative osteoarthritis of the right knee joint. OPERATIVE PROCEDURE: Right total knee arthroplasty. HISTORY: Ms. Hewitt is a 71-year-old female, who developed severe right knee pain. Radiographs showed [id number] arthritis. She failed conservative management and elected to undergo right total knee arthroplasty. HOSPITAL COURSE: The patient was admitted to [facility] on . She underwent a right total knee arthroplasty without complication. She recovered briefly in the PACU and then was transferred to the short stay surgical unit. She was seen on postop day 1. Dressing clean, dry, and intact. Incision clean, dry, and intact. Upon dressing change, calf soft and nontender. Dorsiflexion and plantar flexion intact. Sensation intact to light touch distally, 2+ dorsalis pedis pulse present. Temperature 97.5, pulse 70, respiratory rate 18, blood pressure 133/55, pulse ox 97%. Hemoglobin 10.8, hematocrit 32. INR 1.10. The patient was deemed medically and orthopedically stable for discharge home. DISCHARGE MEDICATIONS: 1. Pravastatin 40 mg p.o. q.a.m. 2. Losartan/hydrochlorothiazide 1 tab p.o. q.a.m. 3. Calcium D3 mag 1 tablet p.o. q.a.m. 4. Multivitamin 1 tab p.o. q.a.m. 5. Acetaminophen 650 mg p.o. q.4 hours p.r.n., max daily dose 5000 units from all sources. 6. Percocet 5/325 one to two tabs every 4-6 hours p.r.n., max daily dose 10. 7. Warfarin 2 mg tabs, 1 to 3 tabs daily, dose determined by INR draws. 8. Zofran sublingual 4 mg tablets q.6 hours p.r.n. nausea. 9. Docusate 100 mg p.o. b.i.d. p.r.n. DISCHARGE PLAN: The patient will be weightbearing as tolerated. Okay to shower on postop day 3, do not submerge wound. Visiting nurse to do wound checks as well as INR draws. Coumadin dosing, please note that you have been given 2 mg tablet, you will take 6 mg today, have to recheck INR tomorrow for further dosing instruction. Pain control, Percocet 5/325 one to two tabs every 4 -6 hours by mouth as needed for pain, max daily dose of 10. Follow up with Dr. Jacob within 10 to 14 days. RACHNA DUMONT [id number]/[facility] #: [id number] MTDD
== END 2017-07-12 18:45 | disposition home or self-care (01) ==
LOC: OR 06:43 → INTOOBSV 09:27 → SSU 09:27
PROVIDERS: ADMIT Orthopaedic Surgery Adult Reconstructive Orthopaedic Surgery; ATTEND Orthopaedic Surgery Adult Reconstructive Orthopaedic Surgery
PROC: 0SRC0J9 Replacement of Right Knee Joint with Synthetic Substitute, Cemented, Open Approach (ICD-10-PCS; principal; 2017-07-11 08:00)
DX: M17.11 Unilateral primary osteoarthritis, right knee (principal); I10 Essential (primary) hypertension; E78.00 Pure hypercholesterolemia, unspecified; E78.5 Hyperlipidemia, unspecified; Z79.899 Other long term (current) drug therapy; Z88.2 Allergy status to sulfonamides
CPT/HCPCS: 36415; 80048; 85014; 85018; 85049; 85610; 96372; A9270-GY; C1776; G0378; G8978-GP-CJ; G8979-GP-CI; G8987-GO-CJ; G8988-GO-CI; J0690; J1100; J1650; J1885; J2250; J2405; J3010

== ENCOUNTER 2021-05-13 17:42 | Inpatient (IN) ==
[2021-05-13 20:05] LABS: ABS Lymphocytes 0.6 10^3/ul (1.0-4.8); ABS Monocytes 0.3 10^3/ul (0-0.8); ABS Neutrophils 2.9 10^3/ul (1.5-7.7); Eosinophil % 0.1 %; Hematocrit 41 % (35-47); Hemoglobin 13.6 g/dL (12.0-16.0); Lymphocyte % 15.5 %; Mean Corpuscular HGB Conc 33 g/dL (31-36); Mean Corpuscular Hemoglobin 30 pg (27-31); Mean Corpuscular Volume 89 fL (80-97); Mean Platelet Volume 7.8 fL (7.4-10.4); Platelet Count 157 10^3/uL (150-450); Red Blood Count 4.55 10^6 /uL (3.70-4.87); Red Cell Distribution Width 14 % (10-15); White Blood Count 3.7 10^3/uL (3.5-10.8)
[2021-05-13 20:14] LABS: INR 1.08 (0.86-1.15)
[2021-05-13 22:16] LABS: Albumin 3.7 g/dL (3.2-5.2); Calcium 8.3 mg/dL (8.6-10.3); Potassium 3.5 mmol/L (3.5-5.0); Total Bilirubin 0.6 mg/dL (0.2-1.0)
[2021-05-13 22:21] LABS: Troponin I 0.01 ng/mL (<0.03)
[2021-05-13 22:23] LABS: Albumin/Globulin Ratio 1.5 (1-3); C Reactive Protein 94.96 mg/L (<8.01); Globulin 2.5 g/dL (2-4); Total Protein 6.2 g/dL (6.4-8.9); eGFR CKD-EPI 53.2 (>60)
[2021-05-14] MEDS ORDERED: Remdesivir 100 mg Vial 200 MG in NS 0.9% 250 ml 210 ML IV ONE (01:20)
[2021-05-14 05:58] LABS: INR 1.16 (0.86-1.15)
[2021-05-14 06:20] LABS: Calcium 7.8 mg/dL (8.6-10.3); Potassium 3.6 mmol/L (3.5-5.0)
[2021-05-14] MEDS: Enoxaparin 40 MG/0.4 ML SYR SUBCUT SCH (06:34)
[2021-05-14] MEDS: Pravastatin 20 mg TAB (NF) PO SCH (08:31)
[2021-05-14] MEDS ORDERED: Dextrose 50% Syringe 50 ml 25 GM/50 ML SYRINGE IV PUSH PRN (19:21)
[2021-05-15] MEDS: Enoxaparin 40 MG/0.4 ML SYR SUBCUT SCH (05:26)
[2021-05-15 07:27] LABS: ABS Lymphocytes 0.6 10^3/ul (1.0-4.8); ABS Monocytes 0.3 10^3/ul (0-0.8); ABS Neutrophils 3.3 10^3/ul (1.5-7.7); Hematocrit 42 % (35-47); Hemoglobin 14.1 g/dL (12.0-16.0); Mean Corpuscular HGB Conc 34 g/dL (31-36); Mean Corpuscular Hemoglobin 30 pg (27-31); Mean Corpuscular Volume 88 fL (80-97); Nucleated Red Blood Cells % 0.1; Platelet Count 205 10^3/uL (150-450); Red Blood Count 4.73 10^6 /uL (3.70-4.87); Red Cell Distribution Width 14 % (10-15); White Blood Count 4.3 10^3/uL (3.5-10.8)
[2021-05-15 07:36] LABS: INR 1.19 (0.86-1.15)
[2021-05-15 07:48] LABS: Albumin 3.3 g/dL (3.2-5.2); Albumin/Globulin Ratio 1.2 (1-3); Calcium 8.3 mg/dL (8.6-10.3); Globulin 2.8 g/dL (2-4); Potassium 3.9 mmol/L (3.5-5.0); Total Bilirubin 0.5 mg/dL (0.2-1.0); Total Protein 6.1 g/dL (6.4-8.9); eGFR CKD-EPI 77.5 (>60)
[2021-05-15] MEDS: Pravastatin 20 mg TAB (NF) PO SCH (08:36)
[2021-05-15] MEDS: Remdesivir 100 mg Vial 100 MG in NS 0.9% 250 ml 230 ML IV SCH (08:37)
[2021-05-15] MEDS: Insulin GLARGINE 100 un/ml 10 ml VIAL SUBCUT SCH ×2 (21:28→21:29)
[2021-05-16] MEDS: Enoxaparin 40 MG/0.4 ML SYR SUBCUT SCH ×2 (05:53→05:55)
[2021-05-16 06:13] LABS: ABS Lymphocytes 0.4 10^3/ul (1.0-4.8); ABS Monocytes 0.3 10^3/ul (0-0.8); ABS Neutrophils 4.4 10^3/ul (1.5-7.7); Hematocrit 39 % (35-47); Hemoglobin 13.3 g/dL (12.0-16.0); Lymphocyte % 8.6 %; Mean Corpuscular HGB Conc 34 g/dL (31-36); Mean Corpuscular Hemoglobin 30 pg (27-31); Mean Corpuscular Volume 88 fL (80-97); Mean Platelet Volume 8.3 fL (7.4-10.4); Nucleated Red Blood Cells % 0.2; Platelet Count 219 10^3/uL (150-450); Red Blood Count 4.45 10^6 /uL (3.70-4.87); Red Cell Distribution Width 14 % (10-15); White Blood Count 5.2 10^3/uL (3.5-10.8)
[2021-05-16 06:19] LABS: INR 1.2 (0.86-1.15)
[2021-05-16 06:49] LABS: Total Bilirubin 0.6 mg/dL (0.2-1.0)
[2021-05-16 06:55] LABS: Albumin/Globulin Ratio 1.2 (1-3); Globulin 2.5 g/dL (2-4); Total Protein 5.5 g/dL (6.4-8.9); eGFR CKD-EPI 86.6 (>60)
[2021-05-16] MEDS: Pravastatin 20 mg TAB (NF) PO SCH (08:09)
[2021-05-16] MEDS: Remdesivir 100 mg Vial 100 MG in NS 0.9% 250 ml 230 ML IV SCH (08:10)
[2021-05-16] MEDS ORDERED: Insulin GLARGINE 100 un/ml 10 ml VIAL SUBCUT SCH ×2 (21:00)
[2021-05-17] MEDS: Enoxaparin 40 MG/0.4 ML SYR SUBCUT SCH (05:39)
[2021-05-17 05:59] LABS: ABS Lymphocytes 0.5 10^3/ul (1.0-4.8); ABS Monocytes 0.4 10^3/ul (0-0.8); ABS Neutrophils 4.7 10^3/ul (1.5-7.7); Hematocrit 39 % (35-47); Hemoglobin 13.3 g/dL (12.0-16.0); Lymphocyte % 8.2 %; Mean Corpuscular HGB Conc 34 g/dL (31-36); Mean Corpuscular Hemoglobin 30 pg (27-31); Mean Corpuscular Volume 88 fL (80-97); Mean Platelet Volume 7.9 fL (7.4-10.4); Nucleated Red Blood Cells % 0.1; Platelet Count 256 10^3/uL (150-450); Red Blood Count 4.48 10^6 /uL (3.70-4.87); Red Cell Distribution Width 14 % (10-15); White Blood Count 5.6 10^3/uL (3.5-10.8)
[2021-05-17 06:07] LABS: INR 1.22 (0.86-1.15)
[2021-05-17 06:32] LABS: Albumin/Globulin Ratio 1.2 (1-3); Calcium 8.1 mg/dL (8.6-10.3); Globulin 2.5 g/dL (2-4); Total Bilirubin 0.7 mg/dL (0.2-1.0); Total Protein 5.5 g/dL (6.4-8.9); eGFR CKD-EPI 90.5 (>60)
[2021-05-17] MEDS: Pravastatin 20 mg TAB (NF) PO SCH (08:49)
[2021-05-17] MEDS: Remdesivir 100 mg Vial 100 MG in NS 0.9% 250 ml 230 ML IV SCH (08:49)
[2021-05-17 09:01] VITALS: BP 121/69
== END 2021-05-17 13:05 | disposition home or self-care (01) | DRG 179 ==
LOC: ED 17:42 → EDHOLD 05-14 01:20 → SUATTDRO 05-14 01:20 → MED 05-14 03:04
PROVIDERS: ADMIT Hospitalist; ATTEND Internal Medicine